=== PATIENT | female | born 1950 | race Caucasian/White ===

== ENCOUNTER 2021-12-17 14:16 | Outpatient (CLI) | payer MEDICARE, BC ==
[2021-12-17] MEDS ORDERED: Magnevist 469MG/ML 20 ML VIAL ONE (14:24)
== END 2021-12-17 14:17 | disposition home or self-care (01) ==
LOC: CSHMRI 14:16
PROVIDERS: ATTEND Internal Medicine
DX: R22.41 Localized swelling, mass and lump, right lower limb (principal)
CPT/HCPCS: 82565; A9579